=== PATIENT | male | born 1945 | race Caucasian/White ===

== ENCOUNTER → 2018-09-05 | Outpatient (CLI) | payer MEDICARE ==
[~2018-09-05] MED LIST: ASPI-25 PO; CHOL200074 PO; LUTE10TA PO; MULT-1258 PO; OMEG-125 PO; UBID200C18 PO; VITA400C73 PO
== END | disposition home or self-care (01) ==
LOC: SHCH 08:29
PROVIDERS: ATTEND Internal Medicine Cardiovascular Disease
DX: I51.7 Cardiomegaly (principal); I35.8 Other nonrheumatic aortic valve disorders; Z95.0 Presence of cardiac pacemaker
CPT/HCPCS: 93306

== ENCOUNTER → 2021-03-10 | Outpatient (CLI) | payer MEDICARE | END | disposition home or self-care (01) | LOC: SHCH 08:35 | PROVIDERS: ATTEND Internal Medicine Cardiovascular Disease | DX: I35.1 Nonrheumatic aortic (valve) insufficiency (principal); I10 Essential (primary) hypertension | CPT/HCPCS: 93306; 93356 ==

== ENCOUNTER → 2021-10-07 | Outpatient (CLI) | payer MEDICARE | END | disposition home or self-care (01) | LOC: RAH 13:00 | PROVIDERS: ATTEND Family Medicine | DX: J40 Bronchitis, not specified as acute or chronic (principal); J20.9 Acute bronchitis, unspecified | CPT/HCPCS: 71046 ==

== ENCOUNTER 2022-01-20 05:42 | Day surgery (SDC) | payer MEDICARE ==
[2022-01-18 15:23] LABS: BASOPHILS % (AUTO) 0.4 % (0.0-5.0); EOSINOPHILS % (AUTO) 3.3 % (0.0-8.0); HEMATOCRIT 40.5 % (42-54); LYMPHOCYTES % (AUTO) 34.2 % (21.0-51.0); MEAN CORPUSCULAR HEMOGLOBIN 31.2 pg (27.0-33.0); MEAN CORPUSCULAR HGB CONC 34.3 g/dL (32.0-36.0); MEAN CORPUSCULAR VOLUME 90.8 fL (79-99); MONOCYTES % (AUTO) 8.8 % (3.0-13.0); PLATELET COUNT (AUTO) 146 K/uL (130-400); RED BLOOD CELL COUNT(AUTO) 4.46 MIL/uL (4.50-6.20); RED CELL DISTRIBUTION WIDTH 13.1 % (11.0-15.5); WHITE BLOOD COUNT (AUTO) 7.3 K/uL (4.8-10.8)
[2022-01-18 15:31] LABS: CREATININE 0.9 mg/dL (0.5-1.5); POTASSIUM 3.9 mmol/L (3.5-5.1)
[2022-01-18 15:35] LABS: INR 1.01 (0.85-1.15)
[2022-01-18 15:36] LABS: PARTIAL THROMBOPLASTIN TIME 27.6 SEC (26.3-35.5)
[2022-01-19 10:21] VITALS: BP 139/82
[2022-01-20] VITALS (10 sets, daily range): BP systolic 104–124; BP diastolic 54–72
[~2022-01-20] VITALS: Ht 182.9 cm; Wt 98.0 kg
[~2022-01-20 05:42] MED LIST changes: +0.9%NACL 1000ML 1,000 ML IV SCH; +ASPI-1012 PO; -ASPI-25 PO; -CHOL200074 PO; +IPRA42SP NS; +LOSA25TA41 PO; -LUTE10TA PO; +METO-408 PO; +PANT20TA18 PO; +VITAMIN D3 PO
[2022-01-20] MEDS ORDERED: BUPIVACAINE/PF 0.25% 30ML VIAL IJ ONE (07:27)
[2022-01-20] MEDS ORDERED: CEFAZOLIN SODIUM 1 GM VIAL ONE ×2 (07:27→10:56)
[2022-01-20] MEDS ORDERED: MIDAZOLAM HCL 5 MG/ML 2ML VIAL IV ONE (07:28)
[2022-01-20] MEDS ORDERED: LIDOCAINE HCL-MPF 2% 10ML AMP IJ ONE (07:28)
[2022-01-20] MEDS ORDERED: MEPERIDINE-PF 25 MG/ML SYG ONE (07:28)
[2022-01-20] MEDS ORDERED: MEPERIDINE-PF 50 MG/ML SYG ONE (07:37)
[2022-01-20] MEDS ORDERED: BACITRACIN 1 EACH PACKET TP ONE (08:23)
[2022-01-20] MEDS ORDERED: ONDANSETRON 4MG INJ IV PRN (09:00)
[2022-01-20] MEDS ORDERED: ACETAMINOPHEN WITH CODEINE 1 TAB TAB PO PRN ×2 (09:00)
[2022-01-20] MEDS ORDERED: CEFAZOLIN SODIUM 1 GM VIAL IVP SCH (13:30)
== END 2022-01-20 13:41 | disposition home or self-care (01) ==
LOC: DAH 05:42
PROVIDERS: ATTEND Internal Medicine Cardiovascular Disease
DX: Z45.02 Encounter for adjustment and management of automatic implantable cardiac defibrillator (principal); I49.5 Sick sinus syndrome; I11.0 Hypertensive heart disease with heart failure; I50.42 Chronic combined systolic (congestive) and diastolic (congestive) heart failure; I45.10 Unspecified right bundle-branch block; I44.2 Atrioventricular block, complete; I42.8 Other cardiomyopathies; Z79.01 Long term (current) use of anticoagulants; Z79.899 Other long term (current) drug therapy; Z79.82 Long term (current) use of aspirin; Z98.890 Other specified postprocedural states
CPT/HCPCS: 80048; 85025; 85610; 85730; 36415; 93005; 33264; C1882; J0690 ×2; J7030; J3490 ×2; J2175 ×2; J2250; A4215; A4222; A4221; A4663; A4216; A4606; A4223 ×3; 82948; 99156; 99157

== ENCOUNTER → 2023-06-10 | Outpatient (CLI) | payer OTHER ==
[~2023-06-10] MED LIST changes: -0.9%NACL 1000ML 1,000 ML IV SCH
== END | disposition home or self-care (01) ==
LOC: RAH 11:42
PROVIDERS: ATTEND Family Medicine
DX: M47.816 Spondylosis without myelopathy or radiculopathy, lumbar region (principal); M54.50 Low back pain, unspecified
CPT/HCPCS: 72100